=== PATIENT | female | born 1995 | race Caucasian/White ===

== ENCOUNTER 2017-09-17 17:31 | Emergency (ER) | payer SELFPAY ==
[~2017-09-17] VITALS: Ht 152.4 cm; Wt 60.0 kg
[~2017-09-17 17:31] MED LIST: ACIDTAB4 PO; BACT800T5 PO; MACR100C PO; PRENCAP6 PO; VITA50LO PO; ZOVI200C24 PO
[2017-09-17 17:33] VITALS: BP 138/77; PULSE 106; RESP 14; TEMP 98.2; O2SAT 97
[2017-09-17] MEDS ORDERED: TRAM50TA PO (17:53)
[2017-09-17] MEDS ORDERED: ORPH100T PO (17:53)
[2017-09-17] MEDS ORDERED: SERT-132 PO (17:53)
[2017-09-17] MEDS ORDERED: CARA1TAB6 PO (17:53)
[2017-09-17] MEDS ORDERED: NAPR500T2 PO (17:53)
--- NOTE | 2017-09-17 18:55 | PD ---
HPI Chief Complaint: GI Complaint Time Seen by Provider: 18:12 Travel History International Travel<30 days: No Contact w/Intl Traveler<30days: No Traveled to known affect area: No History of Present Illness HPI This is a 21-year-old female who presents to the emergency department with no discomfort that has been going on for 1 week, intermittent, moderate severity mostly in the lower abdomen associated with bloody stools. She says she has been having bloody stools for 2 months intermittently over the past week it has significantly worsened. She says that usually the blood just codes her stool but now she saw the blood mixed in with her stool. She denies any fevers or chills. She said 1 week ago she was seen at an outside hospital where she was given pain medicine and she had some blood work done but no CT scan. She has a primary care physician that she follows with but she has no insurance. She says when she was a teenager she was diagnosed with colitis on colonoscopy. She has not had follow-up with a GI doctor but at that time she was told that she has to have colonoscopies every couple of years. PFSH Past Medical History Diminished Hearing: No Gastrointestinal Disorders: Yes (COLITIS) GERD: Yes Genitourinary: Yes Kidney Stones: Yes Tetanus Vaccination: < 5 Years Influenza Vaccination: Yes ?: Not LMP: AUG 11, 2017 : 0 Past Surgical History Surgical History: No Previous Surgery Social History Alcohol Use: No Tobacco Use: No Substance Use: No Allergies-Medications (Allergen,Severity, Reaction): Coded Allergies: hydrocodone (Verified Allergy, Severe, Hives, 09/17/17) metronidazole (Verified Adverse Reaction, Severe, Headache, 09/17/17) Reported Meds & Prescriptions Reported Meds & Active Scripts Active Reported Orphenadrine ER 12 HR (Orphenadrine Citrate) 100 Mg Tab 100 Mg PO Q12HR Sertraline (Sertraline HCl) 50 Mg Tab 50 Mg PO DAILY Tramadol (Tramadol HCl) 50 Mg Tab 50 Mg PO Q4H PRN Carafate (Sucralfate) 1 Gram Tab 1 Gm PO QID On empty stomach Naproxen 500 Mg Tab 500 Mg PO BID Review of Systems Except as stated in HPI: all other systems reviewed are Neg Physical Exam Narrative GENERAL:Well appearing, no acute distress SKIN: Focused skin assessment warm and dry. HEAD: Atraumatic. Normocephalic. EYES: Pupils equal and round. No injection or drainage. ENT: Moist mucous membranes NECK: Trachea midline. CARDIOVASCULAR: Regular rate and rhythm. No murmur appreciated. RESPIRATORY: Clear to auscultation. Breath sounds equal bilaterally. GASTROINTESTINAL: Abdomen soft, mildly tender to palpation in the lower abdomen with no rebound or guarding. Anal fissure in the posterior midline with some bright red blood adjacent to that area. MUSCULOSKELETAL: No obvious deformities. NEUROLOGICAL: Awake and alert. No obvious cranial nerve deficits. Moving all extremities. PSYCHIATRIC: Appropriate mood and affect; insight and judgment normal. Data Data Last Documented VS Vital Signs Date Time Temp Pulse Resp B/P (MAP) Pulse Ox O2 Delivery O2 Flow Rate FiO2 09/17/17 17:50 16 09/17/17 17:33 98.2 106 138/77 (97) 97 Orders Orders Complete Blood Count With Diff (09/17/17 18:40) Basic Metabolic Panel (Bmp) (09/17/17 18:40) MDM Medical Decision Making Medical Screen Exam Complete: Yes Emergency Medical Condition: Yes Interpretation(s) Afebrile, mild tachycardia, normotensive Differential Diagnosis Ulcerative colitis, Crohn's disease, hemorrhoids, anal fissure, ulcer Narrative Course This is a 21-year-old female who presents to the emergency department with abdominal discomfort and rectal bleeding that has been going on for 1 week but is somewhat acute on chronic. She is well appearing on exam. She is very tearful and seems frustrated that she is not getting an answer for what is going on because she keeps going to emergency departments and does not have insurance. I had a long conversation with the patient. She does have an anal fissure on the exam. It is in the posterior midline and does not appear pathologic but certainly given her history of colitis on colonoscopy she may have inflammatory bowel disease. I offered her CT imaging but I did explain to her that this is unlikely to yield a definitive diagnosis and she really needs a colonoscopy and endoscopy as an outpatient. We agreed to do some blood work and if the blood work is abnormal then we will proceed with CT imaging. If the blood work is reassuring then I think the patient can follow-up with [facility] and hopefully obtain a referral to gastroenterology. Patient will be signed out to oncoming provider. Bisi Ruggiero MD Sep 17, 2017 18:55
[2017-09-17 18:59] VITALS: BP 126/68; PULSE 86; RESP 16; O2SAT 100
[2017-09-17 19:14] LABS: AUTOMATED NEUTROPHIL # 6.4 TH/MM3 (1.8-7.7); BASOPHIL % 0.3 % (0.0-2.0); EOSINOPHIL % 0.5 % (0.0-4.0); HEMATOCRIT 37.1 % (35.0-46.0); HEMOGLOBIN 12.8 GM/DL (11.6-15.3); LYMPH % 24.7 % (9.0-44.0); LYMPHOCYTE # 2.4 TH/MM3 (1.0-4.8); MEAN CELL VOLUME 82.6 FL (80.0-100.0); MEAN CORPUSCULAR HEMOGLOBIN 28.4 PG (27.0-34.0); MEAN CORPUSCULAR HGB CONC 34.4 % (32.0-36.0); MEAN PLATELET VOLUME 8.6 FL (7.0-11.0); MONO % 8.5 % (0.0-8.0); MONOCYTE # 0.8 TH/MM3 (0-0.9); PLATELET COUNT 226 TH/MM3 (150-450); RED BLOOD COUNT 4.49 MIL/MM3 (4.00-5.30); RED CELL DISTRIBUTION WIDTH 12.9 % (11.6-17.2); WHITE BLOOD COUNT 9.7 TH/MM3 (4.0-11.0)
[2017-09-17 19:38] LABS: BICARBONATE 28.1 MEQ/L (21.0-32.0); CALCIUM 8.9 MG/DL (8.5-10.1); CREATININE 0.79 MG/DL (0.50-1.00)
[2017-09-17] MEDS ORDERED: LIDOCAINE VISCOUS 2% SOLN 15 ML UDC SWISH-SWAL ONE (20:15)
[2017-09-17] MEDS ORDERED: ALUMINUM/MAGNESIUM/SIMETH 30 ML CUP PO ONE (20:15)
[2017-09-17 20:56] LABS: BACTERIA, URINE RARE /hpf; BILIRUBIN, URINE NEG (NEG); BLOOD, URINE NEG (NEG); GLUCOSE,URINE NEG (NEG); KETONE, URINE NEG (NEG); MUCUS URINE FEW /lpf (OCC); NITRITE,URINE NEG (NEG); PH, URINE 6.5 (5.0-8.5); SQUAMOUS EPITHELIAL CELL URINE 4 /hpf (0-5); URINE COLOR LIGHT-YELLOW (YELLW/STRAW); URINE LEUKOCYTE ESTERASE MOD (NEG)
--- NOTE | 2017-09-17 21:10 | RADRPT ---
EXAM DATE/TIME: 09/17/2017 20:37 [facility] COMPARISON: No previous studies available for comparison. INDICATIONS : Upper abdominal pain for 1 week MEDICAL HISTORY : None. SURGICAL HISTORY : None. ENCOUNTER: Initial ACUITY: 1 week PAIN SCORE: 5/10 LOCATION: Bilateral upper quadrant FINDINGS: A single erect view of the abdomen demonstrates the lower lungs to be clear. No evidence of free int raperitoneal gas. The visualized bowel loops are unremarkable. CONCLUSION: No acute disease. Jairo Whittaker Jr., MD on September 17, 2017 at 21:08 Board Certified Radiologist. This report was verified electronically.
[2017-09-17] MEDS ORDERED: KETOROLAC TROMETHAMINE 60 MG/2 ML (IM) VIAL IM ONE (21:15)
--- NOTE | 2017-09-17 21:48 | PD ---
Physical Exam Date Seen by Provider: Sep 17, 2017 Time Seen by Provider: 19:30 Narrative Repeat exam patient describes diffuse lower abdominal pain as well as epigastric pain. I discussed the indications for a CAT scan which at this point not indicated due to the diffuse nature of her pain. I explained radiation or chemotherapy to affect a young healthy body. I give her GI cocktail. She has been to 3 different hospitals prior for the same illness. She is on tramadol she is on naproxen she is on sucralfate. Patient patient insists that she is in still severe pain my exam shows that she has diffuse lower abdominal pain as well as epigastric pain I order a KUB which comes back negative and I give her a GI cocktail and a Toradol IM and discharged for follow -up as an outpatient Data Data Last Documented VS Vital Signs Date Time Temp Pulse Resp B/P (MAP) Pulse Ox O2 Delivery O2 Flow Rate FiO2 09/17/17 21:52 09/17/17 18:59 86 16 100 Room Air 09/17/17 17:33 98.2 Orders Orders Complete Blood Count With Diff (09/17/17 18:40) Basic Metabolic Panel (Bmp) (09/17/17 18:40) Abdomen, Upright Only (09/17/17 ) Al-Mag Hy-Si 40-40-4 Mg/Ml Liq (Mag-Al P (09/17/17 20:15) Lidocaine 2% Viscous (Xylocaine 2% Visco (09/17/17 20:15) Urinalysis - C+S If Indicated (09/17/17 20:12) Ketorolac Inj (Toradol Inj) (09/17/17 21:15) Ed Discharge Order (09/17/17 21:51) Labs Laboratory Tests Test 09/17/17 18:48 09/17/17 20:18 White Blood Count 9.7 TH/MM3 Red Blood Count 4.49 MIL/MM3 Hemoglobin 12.8 GM/DL Hematocrit 37.1 % Mean Corpuscular Volume 82.6 FL Mean Corpuscular Hemoglobin 28.4 PG Mean Corpuscular Hemoglobin Concent 34.4 % Red Cell Distribution Width 12.9 % Platelet Count 226 TH/MM3 Mean Platelet Volume 8.6 FL Neutrophils (%) (Auto) 66.0 % Lymphocytes (%) (Auto) 24.7 % Monocytes (%) (Auto) 8.5 % Eosinophils (%) (Auto) 0.5 % Basophils (%) (Auto) 0.3 % Neutrophils # (Auto) 6.4 TH/MM3 Lymphocytes # (Auto) 2.4 TH/MM3 Monocytes # (Auto) 0.8 TH/MM3 Eosinophils # (Auto) 0.0 TH/MM3 Basophils # (Auto) 0.0 TH/MM3 CBC Comment DIFF FINAL Differential Comment Blood Urea Nitrogen 13 MG/DL Creatinine 0.79 MG/DL Random Glucose 119 MG/DL Calcium Level 8.9 MG/DL Sodium Level 138 MEQ/L Potassium Level 3.8 MEQ/L Chloride Level 103 MEQ/L Carbon Dioxide Level 28.1 MEQ/L Anion Gap 7 MEQ/L Estimat Glomerular Filtration Rate 92 ML/MIN Urine Color LIGHT-YELLOW Urine Turbidity CLEAR Urine pH 6.5 Urine Specific [place] 1.007 Urine Protein NEG mg/dL Urine Glucose (UA) NEG mg/dL Urine Ketones NEG mg/dL Urine Occult Blood NEG Urine Nitrite NEG Urine Bilirubin NEG Urine Urobilinogen LESS THAN 2.0 MG/DL Urine Leukocyte Esterase MOD Urine RBC 1 /hpf Urine WBC 2 /hpf Urine Squamous Epithelial Cells 4 /hpf Urine Bacteria RARE /hpf Urine Mucus FEW /lpf Microscopic Urinalysis Comment CULT NOT INDICATED MDM Supervised Visit with [facility]: No Differential Diagnosis Diffuse abdominal pain NOS versus colitis versus hepatitis versus gallbladder disease versus pelvic pain versus GERD Narrative Course Patient has a KUB that is nonspecific gas bowel pattern no signs of obstruction patient has a exam is benign and nonfocal patient's labs are all within normal limits I discharge her home to follow-up with the medication she is arty on for prior hospital visit Diagnosis Primary Impression: Abdominal pain Qualified Codes: R10.84 - Generalized abdominal pain Patient Instructions: Abdominal Pain (ED), General Instructions Scripts Dicyclomine (Bentyl) 10 Mg Cap 10 MG PO TID Y for Bowel Management, #10 CAP 0 Refills Prov: Loco East MD 09/17/17 Disposition: 01 DISCHARGE HOME Condition: Good Loco East MD Sep 17, 2017 21:48
[2017-09-17] MEDS ORDERED: DICY10 PO (21:50)
== END 2017-09-17 22:06 | disposition home or self-care (01) ==
LOC: NEPC 17:31
DX: R10.84 Generalized abdominal pain (principal); K92.1 Melena; K21.9 Gastro-esophageal reflux disease without esophagitis; Z87.19 Personal history of other diseases of the digestive system; Z87.442 Personal history of urinary calculi
CPT/HCPCS: 74018; 80048; 81001; 85025; 96372; 99284; J1885